=== PATIENT | male | born 2000 ===

== ENCOUNTER 2022-07-09 21:06 | Emergency (ER) | payer OTHER | END 2022-07-09 22:08 | disposition home or self-care (01) | LOC: ER 21:06 | DX: M53.3 Sacrococcygeal disorders, not elsewhere classified (principal); Z88.0 Allergy status to penicillin; Z88.5 Allergy status to narcotic agent; V43.62XA Car passenger injured in collision with other type car in traffic accident, initial encounter ==

== ENCOUNTER 2023-07-07 07:51 | Day surgery (SDC) | payer OTHER ==
[~2023-07-07] VITALS: Ht 175.3 cm; Wt 92.1 kg
[2023-07-07] MEDS ORDERED: HYDHCL25 PO (08:22)
--- NOTE | 2023-07-07 08:38 | NUR ---
07/07/23 0838 JEFFREY DEAN PT IS A&O X4, COOPERATIVE AND PLEASANT WITH CARE. CALL LIGHT WITHIN REACH.
--- NOTE | 2023-07-07 09:22 | NUR ---
07/07/23 0922 Nayana Lopez PT IS IN A JACKKNIFE POSITION, ARMS ARE ON ARM BOARDS AND SECURED, HEAD IS RESTING ON A FOAM HEAD REST, TWO BOLSTERS ARE UNDER THE CHEST , ONE ON EACH SIDE WITH BREASTS IN BETWEEN BOLSTERS, GELPAD ON THE BED WITH PILLOW ON TOP FOR THIGHS TO REST ON, TWO PILLOW ON UNDER CALVES. ONE SEAT BELT IS ACROSS THE CHEST AREA AND ONE SEAT BELT IS ACROSSED THE THIGHS.
--- NOTE | 2023-07-07 10:58 | NUR ---
07/07/23 1058 Jim Beltre IV REMOVED INTACT. SITE WNL.
== END 2023-07-07 10:55 | disposition home or self-care (01) ==
LOC: ORSCSDS 07:51
PROVIDERS: Surgery
PROC: 0JB90ZZ Excision of Buttock Subcutaneous Tissue and Fascia, Open Approach (ICD-10-PCS; principal; 2023-07-07 09:00)
DX: L05.01 Pilonidal cyst with abscess (principal)
CPT/HCPCS: 88305; J0736; J1100; J2250; J2405; J2704; J3010

== ENCOUNTER → 2023-07-27 | Outpatient (CLI) | payer OTHER ==
[~2023-07-27] MED LIST: HYDHCL25 PO
== END ==
LOC: LAB 15:40 → LAB SHORT 15:40
DX: L05.91 Pilonidal cyst without abscess (principal)
CPT/HCPCS: 87070; 87075; 87205